=== PATIENT | female | born 1960 | race Caucasian/White ===

== ENCOUNTER 2017-11-02 10:37 | Inpatient (IN) | payer MEDICAID ==
[~2017-11-02] VITALS: Ht 152.4 cm; Wt 68.0 kg
[2017-11-02] MEDS ORDERED: LORAZEPAM 0.5MG TABLET PO ONE (14:15)
[2017-11-02 14:53] LABS: BASOPHILS % 0.6 % (0.0-2.0); EOSINOPHILS % 3.5 % (0.0-5.0); HEMATOCRIT. 39.1 % (36.0-48.0); HEMOGLOBIN. 13.5 g/dL (12.0-16.0); LYMPHOCYTES % 35.3 % (20.0-50.0); MEAN CORPUSCULAR HEMOGLOBIN 27.7 pg (28.0-32.0); MEAN CORPUSCULAR VOLUME 80.3 fL (81.0-99.0); MEAN PLATELET VOLUME 7.3 fl (7.4-10.4); MONOCYTES % 11.4 % (2.0-8.0); NEUTROPHILS % 49.2 % (40.0-76.0); PLATELET 216 x1000/uL (130-400); RED BLOOD CELL COUNT 4.87 mill/uL (4.2-5.4); RED CELL DISTRIBUTION WIDTH 14.1 % (11.6-14.6)
[2017-11-02 14:54] LABS: PROTHROMBIN TIME 10.1 sec (9.4-11.6)
[2017-11-02 15:04] LABS: CHLORIDE 110 mEq/L (98-107)
[2017-11-02 15:04] LABS: CLARITY URINE CLOUDY (CLEAR); COLOR URINE YELLOW (YELLOW); KETONES URINE NEGATIVE (NEGATIVE); LEUKOCYTE ESTERASE URINE TRACE (NEGATIVE); NITRITE URINE NEGATIVE (NEGATIVE); OCCULT BLOOD URINE NEGATIVE (NEGATIVE); PROTEIN URINE NEGATIVE (NEGATIVE); SPECIFIC GRAVITY URINE 1.026 (1.005-1.030); UROBILINOGEN URINE 0.2 E.U./dL (0.2-1.0)
[2017-11-02 15:23] LABS: *AMPHETAMINES SCREEN URINE NEGATIVE (NEGATIVE); *BENZODIAZEPINES SCREEN URINE NEGATIVE (NEGATIVE); *COCAINE SCREEN URINE NEGATIVE (NEGATIVE)
[2017-11-02 15:24] LABS: CANNABINOID URINE SCREEN NEGATIVE (NEGATIVE); METHADONE URINE SCREEN NEGATIVE (NEGATIVE); OPIATES URINE SCREEN NEGATIVE (NEGATIVE); PHENCYCLIDINE URINE SCREEN NEGATIVE (NEGATIVE)
[2017-11-02 15:25] LABS: *BARBITURATES SCREEN URINE NEGATIVE (NEGATIVE)
[2017-11-02] MEDS ORDERED: AZITHROMYCIN 500 MG TABLET PO SCH (18:45)
[2017-11-02] MEDS ORDERED: AZITHROMYCIN 500 MG TABLET PO ONE (19:00)
[2017-11-02] MEDS ORDERED: HYDROCODONE/ACETAMINOPHEN 5/325MG TABLET PO PRN (20:00)
[2017-11-02] MEDS ORDERED: ONDANSETRON 4MG ODT PO PRN (20:00)
[2017-11-02] MEDS ORDERED: IPRATROPIUM/ALBUTEROL 0.5-3(2.5)MG/3ML NEB INH PRN (20:00)
[2017-11-02] MEDS ORDERED: GUAIFENESIN 200MG/10ML SUGAR FREE UDC PO PRN (20:00)
[2017-11-02] MEDS ORDERED: MAGNESIUM/ALUMINUM HYDROXIDE/SIMETHICONE 30ML UDC PO PRN (20:00)
[2017-11-02] MEDS ORDERED: LORAZEPAM 2MG/ML CPJ IV PRN (20:00)
[2017-11-02] MEDS ORDERED: DOCUSATE SODIUM 100MG CAPSULE PO PRN (20:00)
[2017-11-02] MEDS ORDERED: ACETAMINOPHEN 325MG TABLET PO PRN (20:00)
[2017-11-02] MEDS ORDERED: CLONIDINE 0.1MG TABLET PO PRN (20:00)
[2017-11-02] MEDS ORDERED: DIPHENHYDRAMINE 50MG/ML VIAL IV PRN (20:31)
[2017-11-02] MEDS ORDERED: NA PHOS,M-B/NA PHOS,DI-BA ENEMA 118ML PR PRN (21:00)
[2017-11-02] MEDS: HYDROMORPHONE HCL/PF 2MG/ML CPJ IV PRN (21:52)
[2017-11-02 22:41] LABS: CHLORIDE 112 mEq/L (98-107)
[2017-11-02] MEDS ORDERED: ACET-2178 PO (23:29)
[2017-11-02] MEDS ORDERED: IBUP-2028 PO (23:29)
[2017-11-02 23:30] VITALS: BP 125/77
[2017-11-02 23:34] VITALS: BP 125/77
[2017-11-03] MEDS: HYDROMORPHONE HCL/PF 2MG/ML CPJ IV PRN ×2 (00:03→04:29)
[2017-11-03] MEDS ORDERED: LEVOFLOXACIN 500MG PREMIX 100 ML IV NR (02:00)
[2017-11-03 04:00] VITALS: BP_SYST 110; BP_SYST 115; BP_DIAS 70; BP_DIAS 76
[2017-11-03 07:07] LABS: BASOPHILS % 0.4 % (0.0-2.0); EOSINOPHILS % 2.9 % (0.0-5.0); HEMOGLOBIN. 12.6 g/dL (12.0-16.0); LYMPHOCYTES % 22.3 % (20.0-50.0); MEAN CORPUSCULAR HEMOGLOBIN 27.5 pg (28.0-32.0); MEAN CORPUSCULAR VOLUME 80.7 fL (81.0-99.0); MEAN PLATELET VOLUME 7.3 fl (7.4-10.4); MONOCYTES % 10.5 % (2.0-8.0); NEUTROPHILS % 63.9 % (40.0-76.0); PLATELET 215 x1000/uL (130-400); RED BLOOD CELL COUNT 4.58 mill/uL (4.2-5.4); RED CELL DISTRIBUTION WIDTH 13.6 % (11.6-14.6)
[2017-11-03 07:21] LABS: CHLORIDE 110 mEq/L (98-107)
[2017-11-03 07:31] LABS: LDL CHOLESTEROL 127 mg/dL (5-100)
[2017-11-03 07:33] LABS: HDL CHOLESTEROL 39 mg/dL (40-59)
[2017-11-03 07:36] LABS: T4 FREE 1.11 ng/dL (0.76-1.46)
[2017-11-03 08:00] VITALS: BP 109/70
[2017-11-03 08:24] VITALS: BP 18/109
[2017-11-03] MEDS ORDERED: ENOXAPARIN 40MG/0.4ML SYR SUBCUT SCH (09:00)
[2017-11-03] MEDS ORDERED: ONDANSETRON HCL 4MG/2ML VIAL IV PRN (09:15)
[2017-11-03] MEDS ORDERED: LEVOFLOXACIN 500MG PREMIX 100 ML IV SCH (23:00)
== END 2017-11-03 10:47 | disposition home or self-care (01) | DRG 139 ==
LOC: ER 10:54 → 6EST 18:32 → EDBEDREQTM 18:33 → EDBEDREQ 18:33 → EDBEDREQSVC 18:33 → ENRESERV 19:50
PROVIDERS: ADMIT Internal Medicine; ATTEND Internal Medicine
DX: J18.9 Pneumonia, unspecified organism (principal); I10 Essential (primary) hypertension; F41.9 Anxiety disorder, unspecified; F32.9 Major depressive disorder, single episode, unspecified; E86.0 Dehydration
CPT/HCPCS: 36415; 70450; 71045; 80048; 80053; 80061; 80305; 81003; 83036; 83880; 84439; 84443; 84484; 85025; 85610; 93005; 99285; C1893; J1170; J1200; J1650; J1956; J2405; J7050

== ENCOUNTER 2017-11-03 13:08 | Emergency (ER) | payer MEDICAID ==
[~2017-11-03] VITALS: Ht 152.4 cm; Wt 68.0 kg
[~2017-11-03 13:08] MED LIST: ACET-2178 PO; IBUP-2028 PO
[2017-11-03] MEDS ORDERED: DIAZEPAM 5 MG TABLET PO ONE (14:30)
[2017-11-03 16:00] VITALS: BP 117/75
== END 2017-11-03 17:49 | disposition left against medical advice (07) ==
LOC: ER 15:40
DX: J18.9 Pneumonia, unspecified organism (principal); F41.9 Anxiety disorder, unspecified; F32.9 Major depressive disorder, single episode, unspecified; Z98.1 Arthrodesis status
CPT/HCPCS: 71045; 81025; 93005; 99284

== ENCOUNTER 2019-02-25 08:44 | Emergency (ER) | payer MEDICAID ==
[~2019-02-25] VITALS: Ht 154.9 cm; Wt 74.0 kg
[2019-02-25] MEDS ORDERED: MORPHINE SULFATE 4 MG/ML CPJ (NOT FOR IM USE) IV ONE (10:30)
[2019-02-25 10:35] LABS: BASOPHILS % 0.5 % (0.0-2.0); EOSINOPHILS % 2.6 % (0.0-5.0); HEMATOCRIT. 40.4 % (36.0-48.0); HEMOGLOBIN. 13.8 g/dL (12.0-16.0); MEAN CORPUSCULAR HEMOGLOBIN 28.1 pg (28.0-32.0); MEAN CORPUSCULAR VOLUME 82.2 fL (81.0-99.0); MEAN PLATELET VOLUME 7.1 fl (7.4-10.4); MONOCYTES % 11.7 % (2.0-8.0); NEUTROPHILS % 50.2 % (40.0-76.0); PLATELET 196 x1000/uL (130-400); RED BLOOD CELL COUNT 4.92 mill/uL (4.2-5.4); RED CELL DISTRIBUTION WIDTH 13.7 % (11.6-14.6)
[2019-02-25 10:43] LABS: CHLORIDE 112 mEq/L (98-107)
[2019-02-25 12:46] VITALS: BP 122/78
== END 2019-02-25 12:56 | disposition home or self-care (01) ==
LOC: ER 08:44
DX: R09.1 Pleurisy (principal); F41.9 Anxiety disorder, unspecified; F32.9 Major depressive disorder, single episode, unspecified; Z87.11 Personal history of peptic ulcer disease; Z98.1 Arthrodesis status
CPT/HCPCS: 36415; 71045; 80053; 83880; 84484; 85025; 93005; 96374; 99284; J2270

== ENCOUNTER 2021-10-08 10:19 | Emergency (ER) | payer MEDICARE, MEDICAID ==
[~2021-10-08] VITALS: Ht 177.8 cm; Wt 73.0 kg
[~2021-10-08 10:19] MED LIST changes: -ACET-2178 PO; +TOPUD PO
[2021-10-08 10:36] VITALS: BP 119/68
[2021-10-08] MEDS ORDERED: ACETAMINOPHEN 325MG TABLET PO STA (10:38)
[2021-10-08] MEDS ORDERED: SODIUM CHLORIDE 0.9% 1,000 ML IV ONE (10:45)
[2021-10-08 12:20] LABS: BASOPHILS % 0.5 % (0.0-2.0); EOSINOPHILS % 1.4 % (0.0-5.0); HEMATOCRIT. 43.9 % (36.0-48.0); HEMOGLOBIN. 14.6 g/dL (12.0-16.0); LYMPHOCYTES % 11.2 % (20.0-50.0); MEAN CORPUSCULAR HEMOGLOBIN 27.5 pg (28.0-32.0); MEAN CORPUSCULAR VOLUME 82.9 fL (81.0-99.0); MEAN PLATELET VOLUME 7.6 fl (7.4-10.4); MONOCYTES % 13.3 % (2.0-8.0); NEUTROPHILS % 73.6 % (40.0-76.0); PLATELET 171 x1000/uL (130-400); RED CELL DISTRIBUTION WIDTH 13.2 % (11.6-14.6)
[2021-10-08 12:38] LABS: CHLORIDE 109 mEq/L (98-107)
== END 2021-10-08 18:38 | disposition left against medical advice (07) ==
LOC: ER 10:19
DX: Z53.21 Procedure and treatment not carried out due to patient leaving prior to being seen by health care provider (principal); M25.59 Pain in other specified joint; R53.83 Other fatigue
CPT/HCPCS: 36415; 71045; 80053; 85025; J7030; 99284